=== PATIENT | male | born 1990 | race Caucasian/White ===

== ENCOUNTER 2022-04-06 10:37 | Outpatient (CLI) | payer BC, MEDICAID, SELFPAY ==
--- NOTE | 2022-04-06 12:30 | CT_ITS ---
WS: [id number] CT ABDOMEN PELVIS TECHNIQUE: Noncontrast CT of the abdomen and pelvis with coronal and sagittal reformatted images. CLINICAL INFORMATION: left inguinal pain COMPARISON: None. DLP: 1234.[address] scans at [facility] use at least one of these dose optimization techniques: automated e xposure control; mA and/or kV adjustment per patient size (includes targeted exams where dose is matc hed to clinical indication); or iterative reconstruction. FINDINGS: Small fat-containing LEFT inguinal hernia measuring approximately 2.5 x 2.3 x 2.1 CM. This extends me dially along the spermatic cord. No herniated bowel. Lung bases are well aerated. Noncontrast liver is normal. Normal noncontrast spleen. Normal GE juncti on. Noncontrast pancreas is normal. Normal caliber abdominal aorta. No hydronephrosis in either kidne y. Normal caliber abdominal aorta. Sigmoid diverticulosis. No evidence of acute diverticulitis. Normal appendix in the RIGHT lower quadr ant. Fat-containing umbilical hernia. CT/CT abdomen pelvis con [id number] IMPRESSION: 1. Fat-containing LEFT inguinal hernia described above. No herniated bowel. 2. No other acute findings. 3. Small fat-containing umbilical hernia. 4. Normal appendix in the RIGHT lower quadrant. 5. A few sigmoid diverticuli. No evidence of acute diverticulitis.
== END 2022-04-06 10:38 | disposition home or self-care (01) ==
LOC: RAD 10:39
PROVIDERS: PCP Family Medicine; Visit Provider Family Medicine
DX: K40.90 Unilateral inguinal hernia, without obstruction or gangrene, not specified as recurrent (principal)
CPT/HCPCS: 74176

== ENCOUNTER → 2022-04-15 09:27 | Outpatient (BNVA) | payer BC, MEDICAID, SELFPAY | PROVIDERS: PCP Family Medicine; Referring Provider Family Medicine; Visit Provider Surgery | DX: K40.90 Unilateral inguinal hernia, without obstruction or gangrene, not specified as recurrent (principal) | CPT/HCPCS: 99204 ==

== ENCOUNTER 2022-05-05 06:36 | Day surgery (SDC) | payer BC, MEDICAID, SELFPAY ==
[2022-05-04 08:58] VITALS: BMI 38.7
[2022-05-05] VITALS (11 sets, daily range): BP systolic 105–157; BP diastolic 65–99; PULSE 60–93; RESP 17–25; TEMP 36.3–36.6; O2SAT 93–100
--- NOTE | 2022-05-05 06:51 | W.PM.OPSFHP ---
Same Day Surgery H&P Indication for Procedure/HPI DATE OF PROCEDURE: May 05, 2022 CHIEF COMPLAINT/INDICATIONFOR SURGICAL PROCEDURE: left inguinal hernia repair PREOP DIAGNOSIS: inguinal hernia PLANNED PROCEDURE: Operation Date: 05/05/22 08:05 Proposed Procedures p lap poss open left inguinal hernia repair 93468,K40.90(Left) - Juan Carlos Damon MD Medications/Allergies* Home Medications Medication Instructions Recorded Confirmed Type ascorbate calcium (vitamin C) 500 500 mg PO DAILY 12/17/21 05/04/22 History mg tablet magnesium 200 mg tablet 200 mg PO DAILY 12/17/21 05/04/22 History cjepycac-dyjfrgmj-cdafy acid 400 1 tab PO DAILY 12/17/21 05/04/22 History mcg-vit K 20 mcg-lycop 300 mcg tablet (Men's Multivitamin) Allergies/Adverse Reactions Allergy/AdvReac Type Severity Reaction Status Date / Time No Known Allergies Allergy Verified 05/04/22 08:56 Pertinent History/Comorbid Conditions* Medical History (Updated 12/20/21 @ 07:04 by Maryanne Coon DO) Essential hypertension, benign Surgical History (Updated 12/17/21 @ 13:33 by Maryanne Coon DO) Status post surgical removal of pilonidal cyst Family History (Updated 12/17/21 @ 13:27 by Marta Wills LPN) Dementia Grandmother Thyroid activity decreased Mother Social History Smoking and tobacco status: current every day smoker Quit status (tobacco): not considering quitting Alcohol intake: current Alcohol intake frequency: holidays/special occasions only Alcohol type: beer Pertinent Exam Findings alert, oriented x 3 and regular rate & rhythm Recommendations Surgery/Procedure today Coding Level of Care Code Acute Community Administrator for Aura Morejon
--- NOTE | 2022-05-05 06:58 | ANES.PREANE2 ---
Pre-Anesthetic Assessment Height/Weight: Height 1.68 m Weight 108.862 kg Temp Pulse Resp BP Pulse Ox 97.4 F L 86 18 144/95 97 05/05/22 06:48 05/05/22 06:48 05/05/22 06:48 05/05/22 06:48 05/05/22 06:48 Preop Diagnosis: inguinal hernia Operation Date: 05/05/22 08:05 Proposed Procedures p lap poss open left inguinal hernia repair 10101,K40.90(Left) - Juan Carlos Damon MD Familial anesthetic complications: I have a high tolerance to pain killers and anesthesia Was Beta Jessica taken within 24 hours: N/A Was Clonidine taken within 24 hours: N/A Last intake: > 8 hrs Social Tobacco and No alcohol Exam alert, oriented x 3 and regular rate & rhythm B/L low pitched wheezes, mostly cleared with cough - patient having allergy-related sinus drainage Airway Mallampati: Class III Dentition: other (missing) Comments: Comments: weinstein Pulmonary hx of asthma many years ago, ? ELISEO - says patient snores very loudly, but she hasn't heard him stop breathing CV/HEM None reported None reported Hepatic None reported GI None reported Metabolic None reported Musc/skel None reported Neuropsych None reported Anesthetic Plan ASA status: 2 Anesthesia: General Risk of > 500 ml blood loss (7ml/kg in children): No Medications/Allergies Home Medications Medication Instructions Recorded Confirmed Last Taken Type ascorbate calcium (vitamin C) 500 500 mg PO DAILY 12/17/21 05/05/22 05/04/22 History mg tablet magnesium 200 mg tablet 200 mg PO DAILY 12/17/21 05/05/22 05/04/22 History csiceuej-otaushsu-djbek acid 400 1 tab PO DAILY 12/17/21 05/05/22 05/04/22 History mcg-vit K 20 mcg-lycop 300 mcg tablet (Men's Multivitamin) Allergies Allergy/AdvReac Type Severity Reaction Status Date / Time No Known Allergies Allergy Verified 05/04/22 08:56 [facility] Anesthesia Medical History Essential hypertension, benign Surgical History Status post surgical removal of pilonidal cyst Family History Mother Thyroid activity decreased Grandmother Dementia Social History Smoking and tobacco status: current every day smoker Quit status (tobacco): not considering quitting Alcohol intake: current Alcohol intake frequency: holidays/special occasions only Alcohol type: beer Data Anesthesia Cardiac Studies: No Data to Display
[2022-05-05] MEDS: sodium chloride 0.9% 1,000 ML 30 ML IV (07:08)
[2022-05-05] MEDS: midazolam 1 mg/mL INJ 2 mL 2 MG IVP (07:16)
[2022-05-05] MEDS: ipratropium-albuterol 3 mL Neb INHALATION (07:21)
--- NOTE | 2022-05-05 09:06 | P.OP_ITS ---
Operative Report Date of procedure: May 05, 2022 Pre-op diagnosis: Left inguinal hernia Post-op diagnosis: Left direct inguinal hernia Procedure done: Laparoscopic total extraperitoneal repair of left direct inguinal hernia with Surgimax 3D mesh 16 x 10 cm Pathology: none sent Surgeon: Juan Carlos Damon Anesthesia: General Condition: stable Disposition: PACU Procedure: The patient was taken to the operating room, intubated under general anesthesia. After IV antibiotic was administered, the abdomen was prepped and draped in a sterile manner. Using a 15 blade, a 1.0 cm transverse incision was made infraumbilically on the left side. Subcutaneous tissue was divided using electrocautery and the anterior rectus sheath divided using an 11 blade. The rectus muscle was retracted laterally and the extraperitoneal space identified. A 11 mm port was placed and 12 mm of pneumoperitoneum was created. A 10 mm 30? scope was introduced and the retrorectus space was opened using the camera up to the pubic symphysis and 5 mm ports were placed in the midline, one 2- fingerbreadths above the pubic symphysis and the other midway between these two ports under direct visualization. Blunt dissection was carried out to open up the tissue in the midline and to the pubic symphysis, which was identified. The dissection was then carried laterally where the iliopubic tract was identified. There was no femoral or obturator hernia, there was a direct hernia which was reduced easily. The inferior epigastric artery was identified and dissection was carried posterior to it and laterally, the space was opened up to the level of the umbilicus superior to the anterior superior iliac spine. I proceeded to dissect out the spermatic cord and the indirect there was no indirect hernia but the edge of the peritoneum was peeled back. 16 x 10cm Ultrapro mesh was rolled and introduced through the 10 mm port and then rolled laterally and apposed well against the abdominal wall to cover the myopectineal orifice completely. 10 Cc of 0.25% Marcaine was infiltrated into the preperitoneal space. The extraperitoneal space was desufflated under direct visualization to ensure no slippage of hernial sac under the mesh. All ports were removed, the anterior rectus fascia at the infraumbilical port closed using figure of eight 0 Vicryl sutures, subcutaneous tissue approximated using 3-0 Vicryl sutures and skin at all three port sites were closed using running subcuticular 4-0 Monocryl sutures and Dermabond. 10 mL of 0.25% Marcaine was infiltrated at the port sites. The patient was stable throughout the procedure.
[2022-05-05] MEDS: ibuprofen 200 mg Tablet 400 MG PO (10:05)
--- NOTE | 2022-05-05 16:37 | ANE.PACU2 ---
Inpatient post-anesthesia follow up: Airway intact: Yes Vital signs: Temperature 97.6 F Pulse Rate 70 Respiratory Rate 17 Blood Pressure 141/99 Pulse Oximetry 94 Oxygen Delivery Me thod Room Air Oxygen Flow Rate 5 Fraction of Inspir ed Oxygen Hydration adequate: Yes Nausea and vomiting: No Pain level: 1 Mental status: Baseline
== END 2022-05-05 10:43 | disposition home or self-care (01) ==
PROVIDERS: PCP Family Medicine; Visit Provider Surgery
PROC: (CPT 49650; principal; 2022-05-05 07:55)
DX: K40.90 Unilateral inguinal hernia, without obstruction or gangrene, not specified as recurrent (principal); I10 Essential (primary) hypertension; F17.210 Nicotine dependence, cigarettes, uncomplicated
CPT/HCPCS: 49650; C1781; J0330; J1100; J1885; J2250; J2405; J2704; J2710; J3010; J3490; J7030

== ENCOUNTER → 2022-05-13 09:31 | Outpatient (BNVA) | payer BC, MEDICAID, SELFPAY | PROVIDERS: PCP Family Medicine; Visit Provider Surgery | DX: Z98.890 Other specified postprocedural states (principal); Z87.19 Personal history of other diseases of the digestive system | CPT/HCPCS: 99024 ==

== ENCOUNTER → 2022-06-14 14:10 | Outpatient (BNVA) | payer BC, MEDICAID, SELFPAY | PROVIDERS: PCP Family Medicine; Visit Provider Surgery | DX: R10.32 Left lower quadrant pain (principal) | CPT/HCPCS: 99213 ==

== ENCOUNTER → 2023-08-03 18:29 | Emergency (ER) | payer OTHER, SELFPAY ==
[2023-08-03 18:44] VITALS: BP 154/100; PULSE 99; TEMP 37.1; O2SAT 99; BMI 34.8
--- NOTE | 2023-08-03 19:35 | XRR_ITS ---
PROCEDURE INFORMATION: Exam: XR Right Forearm Exam date and time: 08/03/2023 7:45 PM Age: 33 years old Clinical indication: Injury or trauma; Other: Hit; Blunt trauma (contusions or hematomas); Arm, lower; Right; Additional info: Arm pain- hit by table TECHNIQUE: Imaging protocol: Radiologic exam of the right forearm. Views: 2 views. COMPARISON: No relevant prior studies available. FINDINGS: Bones/joints: Normal. Soft tissues: Normal. XR/XR forearm RT 2V [id number] IMPRESSION: No acute findings.
--- NOTE | 2023-08-03 19:35 | XRR_ITS ---
PROCEDURE INFORMATION: Exam: XR Right Shoulder Exam date and time: 08/03/2023 7:42 PM Age: 33 years old Clinical indication: Injury or trauma; Other: Hit; Blunt trauma (contusions or hematomas); Shoulder; Right; Additional info: Shoulder pain- fall TECHNIQUE: Imaging protocol: Radiologic exam of the right shoulder. Views: 2 or more views. COMPARISON: No relevant prior studies available. FINDINGS: Bones/joints: Normal. Soft tissues: Normal. XR/XR shoulder RT min 2V* [id number] IMPRESSION: No acute findings.
--- NOTE | 2023-08-03 19:35 | W.ED.EXTPRO ---
HPI - Extremity Problem General: Chief complaint: Extremity Injury, Upper Stated complaint: right arm injury Time Seen by Provider: 08/03/23 19:00 History of Present Illness: Patient is in today for right arm pain. He reports that he was at work and was trying to help unjam a lunch table when it kicked back at him and threw him backwards 6 feet. He reports that he is not exactly sure where he was hit by the lunch table but his initial pain was in his right forearm. He reports that over time he has noticed pain in his right shoulder radiating all the way down to his right wrist. Associated symptoms: Deny fever(s) Review of Systems Const: Denies: fever(s) or chills Musc: Reports: extremity pain and joint pain PFS ED PFSH: Medical History Essential hypertension, benign Surgical History Status post left inguinal hernia repair (05/05/22) Status post surgical removal of pilonidal cyst Family History Mother Thyroid activity decreased Grandmother Dementia Social History Smoking and tobacco status: current every day smoker Quit status (tobacco): not considering quitting Alcohol intake: current Alcohol intake frequency: holidays/special occasions only Alcohol type: beer Substance/Drug Use: current Physical Exam Const: COMMON NORMALS: no acute distress, patient oriented x3 and alert Resp: COMMON NORMALS: normal respiratory effort and No use of accessory muscles Extremity: NARRATIVE EXTREMITY EXAM: Patient has mild tenderness to palpation right anterior shoulder with no obvious bony or soft tissue deformity. Patient has tenderness to palpation right forearm with no obvious bony or soft tissue deformity. Patient has free range of motion full range of motion full lateral and frontal abduction. Patient has good posterior reach although he reports pain in his anterior shoulder with posterior reach. CSM is within normal limits. No tenderness to palpation over the elbow. Neuro: COMMON NORMALS: patient oriented x3 SENSORIUM/ORIENTATION: Yes alert Course Vital Signs: Vital signs: Vital Signs Temperature 98.7 F 08/03/23 18:44 Pulse Rate 99 08/03/23 18:44 Blood Pressure 154/100 08/03/23 18:44 Pulse Oximetry 99 08/03/23 18:44 Oxygen Delivery Me thod Room Air 08/03/23 18:44 MDM - Extremity (Nontraumatic) Medical Decision Making Arm strain, arm contusion, fracture are all considered differentials. X-ray shoulder 2 view?wet read with no acute osseous deformity. Radiologist finds no acute findings X-ray forearm?wet read with no acute osseous deformity. Radiologist finds no acute findings. We will treat patient conservatively for arm contusion arm strain. Toradol is administered in the ER today. Advised patient of conservative treatments at home including ice, rest, elevation, gentle stretches. Follow-up with primary care provider next week. Return to the ER for new or worsening symptom Lab Data Radiology Impressions Forearm X-Ray 08/03/23 19:35 IMPRESSION: No acute findings. Shoulder X-Ray 08/03/23 19:35 IMPRESSION: No acute findings. All radiology interpretation(s) finalized by discharge Discharge Plan Discharge Patient Disposition: Home Clinical Impression: Strain of shoulder, right, Contusion of arm, right Condition: Stable Prescriptions: No Action ascorbate calcium (vitamin C) 500 mg tablet 500 mg PO DAILY Men's Multivitamin 400-20-300 mcg tablet 1 tab PO DAILY magnesium 200 mg tablet 200 mg PO DAILY gabapentin [Neurontin] 100 mg capsule 100 mg PO BID Qty: 30 0RF ibuprofen [IBU] 800 mg tablet 800 mg PO TID 10 Days Qty: 30 0RF Rx Instructions: take with meals hydrocodone-acetaminophen 5-325 mg tablet 1 tab PO Q6H PRN (Reason: pain) Qty: 20 0RF Colace 100 mg capsule 100 mg PO BID Qty: 30 0RF Discharge Orders: Discharge ED (Routine); Ordered 08/03/23 Ordered By: Julia Snow Referrals: Maryanne Coon DO [Primary Care Provider] - Discharge Diet: Usual diet Discharge Activity: Increase activity as tolerated Patient Instructions: Contusion in Adults (ED) Activity Restrictions/Additional Instructions: Your x-rays did not show any acute bony injury. I recommend conservative treatment at home including ice 3-4 times a day 10 to 15 minutes per time, rest, elevation of the extremity. Follow-up with your primary care provider next week. Return to the ER as needed for new or worsening symptoms Stand Alone Forms: Work/School Release Coding Level of Care Code ED Line Service Attendant for Aura Morejon
[2023-08-03] MEDS: ketorolac 60 mg/2 mL INJ IM (22:15)
== END | disposition home or self-care (01) ==
PROVIDERS: Emergency Provider Nurse Practitioner Family; PCP Family Medicine
DX: S46.911A Strain of unspecified muscle, fascia and tendon at shoulder and upper arm level, right arm, initial encounter (principal); S40.021A Contusion of right upper arm, initial encounter; I10 Essential (primary) hypertension; F17.210 Nicotine dependence, cigarettes, uncomplicated; W20.8XXA Other cause of strike by thrown, projected or falling object, initial encounter; Y99.0 Civilian activity done for income or pay
CPT/HCPCS: 73030; 73090; 96372; J1885

== ENCOUNTER → 2023-10-31 11:25 | Outpatient (BNVA) | payer BC, MEDICAID, SELFPAY | PROVIDERS: PCP Family Medicine; Visit Provider Family Medicine | DX: I10 Essential (primary) hypertension (principal); Z76.89 Persons encountering health services in other specified circumstances | CPT/HCPCS: 80053; 80061; 83036; 84443; 85025 ==